=== PATIENT | male | born 1945 | race Hispanic/Latino ===

== ENCOUNTER → 2017-11-03 | Outpatient (CLI) | payer OTHER ==
[~2017-11-03] MED LIST: REGADENOSON 0.4 MG/5 ML PF SYG IVP SCH
== END | disposition home or self-care (01) ==
LOC: SHCH 09:38
PROVIDERS: ATTEND Internal Medicine Cardiovascular Disease
DX: I25.119 Atherosclerotic heart disease of native coronary artery with unspecified angina pectoris (principal); I10 Essential (primary) hypertension; E78.5 Hyperlipidemia, unspecified
CPT/HCPCS: 78452; 93017; 96374; A9500 ×2; J2785

== ENCOUNTER 2021-03-29 07:13 | Day surgery (SDC) | payer OTHER ==
[2021-03-26 12:06] LABS: BASOPHILS % (AUTO) 0.7 % (0.0-5.0); EOSINOPHILS % (AUTO) 4.9 % (0.0-8.0); HEMATOCRIT 42.1 % (42-54); LYMPHOCYTES % (AUTO) 20.3 % (21.0-51.0); MEAN CORPUSCULAR HEMOGLOBIN 30.1 pg (27.0-33.0); MEAN CORPUSCULAR HGB CONC 32.1 g/dL (32.0-36.0); MONOCYTES % (AUTO) 6.3 % (3.0-13.0); NEUTROPHILS % (AUTO) 67.6 % (40.0-77.0); PLATELET COUNT (AUTO) 184 K/uL (130-400); RED BLOOD CELL COUNT(AUTO) 4.48 MIL/uL (4.50-6.20); RED CELL DISTRIBUTION WIDTH 13.7 % (11.0-15.5); WHITE BLOOD COUNT (AUTO) 5.9 K/uL (4.8-10.8)
[2021-03-26 12:14] LABS: POTASSIUM 4.3 mmol/L (3.5-5.1)
[2021-03-26 12:20] LABS: INR 1.04 (0.85-1.15); PROTHROMBIN TIME 11.3 SEC (9.6-11.6)
[2021-03-26 12:21] LABS: PARTIAL THROMBOPLASTIN TIME 27.1 SEC (26.3-35.5)
[2021-03-28 17:48] VITALS: BP 159/83
[2021-03-29] VITALS (18 sets, daily range): BP systolic 134–159; BP diastolic 68–87
[~2021-03-29] VITALS: Ht 165.1 cm; Wt 66.7 kg
[~2021-03-29 07:13] MED LIST changes: +AEC81 PO; -REGADENOSON 0.4 MG/5 ML PF SYG IVP SCH
[2021-03-29] MEDS ORDERED: LACTATED RINGERS 1000ML 1,000 ML IV ONE (07:45)
[2021-03-29] MEDS: CEFTRIAXONE 1G VIAL ONE ×2 (07:50→09:55)
[2021-03-29] MEDS ORDERED: LIDOCAINE PF 100MG/5ML (2%) SYRINGE 5ML ONE (08:32)
[2021-03-29] MEDS ORDERED: SUCCINYLCHOLINE 200MG/10ML SYR ONE (08:32)
[2021-03-29] MEDS ORDERED: DEXAMETHASONE SOD PHOSPHATE 10MG/ML 1ML VIAL ONE (08:32)
[2021-03-29] MEDS ORDERED: MIDAZOLAM HCL 1 MG/ML 2ML VIAL ONE (08:32)
[2021-03-29] MEDS ORDERED: ROCURONIUM 10MG/1ML SYR 10 MG/ML ML ONE (08:33)
[2021-03-29] MEDS ORDERED: GLYCOPYRROLATE 1 MG/5 ML SYRINGE ONE (08:33)
[2021-03-29] MEDS ORDERED: FENTANYL CITRATE PF 50 MCG/1 ML 2ML VIAL ONE (08:33)
[2021-03-29] MEDS ORDERED: PROPOFOL 10 MG/ML 20ML VIAL IV ONE (08:33)
[2021-03-29] MEDS ORDERED: ONDANSETRON 4MG INJ ONE (08:33)
[2021-03-29] MEDS ORDERED: NEOSTIGMINE 5MG/5ML SYR IV ONE (08:33)
[2021-03-29] MEDS ORDERED: OPIUM/BELLADONNA ALKALOIDS 1 EACH SUPP.RECT RC ONE (10:16)
[2021-03-29] MEDS ORDERED: IPRATROPIUM/ALBUTEROL SULFATE 3 ML SOLUTION IH ONE (10:57)
[2021-03-29] MEDS ORDERED: FINA1TAB13 PO (11:19)
[2021-03-29] MEDS ORDERED: LORA10TA7 PO (11:19)
[2021-03-29] MEDS ORDERED: AEC81 PO (11:19)
[2021-03-29] MEDS ORDERED: AMLO2.5T4 PO (11:19)
[2021-03-29] MEDS ORDERED: LOSA25TA41 PO (11:19)
[2021-03-29] MEDS ORDERED: ATOR10 PO (11:19)
[2021-03-29] MEDS ORDERED: MONT4TAB17 PO (11:19)
[2021-03-29] MEDS ORDERED: TAMS-1 PO (11:19)
[2021-03-29] MEDS ORDERED: PHENAZOPYRIDINE HCL 200 MG TABLET ONE (11:45)
== END 2021-03-29 12:40 | disposition home or self-care (01) ==
LOC: DAH 07:13
PROVIDERS: ATTEND Urology
DX: N40.1 Benign prostatic hyperplasia with lower urinary tract symptoms (principal); Z20.822 Contact with and (suspected) exposure to COVID-19; R39.12 Poor urinary stream; R39.14 Feeling of incomplete bladder emptying; R35.1 Nocturia; N35.812 Other bulbous urethral stricture, male; I10 Essential (primary) hypertension; J44.9 Chronic obstructive pulmonary disease, unspecified; Z99.81 Dependence on supplemental oxygen; Z87.891 Personal history of nicotine dependence; Z79.01 Long term (current) use of anticoagulants; Z79.82 Long term (current) use of aspirin; Z79.899 Other long term (current) drug therapy
CPT/HCPCS: 36415; 52648; 71045; 80048; 85025; 85610; 85730; 87635; 93005; 94640; A4213; A4215; A4221; A4222; A4223; A4335; A4340; A4354; A4358 ×2; A4554; A4600; A4663; A5113; A6260; A7002; C9803; J0330; J0696; J1100; J2001; J2250; J2405; J2704; J2710; J3010; J3490; J7120 ×2

== ENCOUNTER → 2021-12-18 | Outpatient (CLI) | payer OTHER ==
[~2021-12-18] MED LIST changes: +AMLO2.5T4 PO; +ATOR10 PO; +FINA1TAB13 PO; +LORA10TA7 PO; +LOSA25TA41 PO; +MONT4TAB17 PO; +TAMS-1 PO
== END | disposition home or self-care (01) ==
LOC: SHCH 08:05
PROVIDERS: ATTEND Internal Medicine Cardiovascular Disease
DX: N28.1 Cyst of kidney, acquired (principal); I10 Essential (primary) hypertension
CPT/HCPCS: 93975

== ENCOUNTER → 2022-01-14 | Outpatient (CLI) | payer OTHER | END | disposition home or self-care (01) | LOC: SHCH 09:48 | PROVIDERS: ATTEND Internal Medicine Cardiovascular Disease | DX: I70.293 Other atherosclerosis of native arteries of extremities, bilateral legs (principal) | CPT/HCPCS: 93925 ==

== ENCOUNTER → 2023-05-13 | Outpatient (CLI) | payer OTHER ==
[~2023-05-13] MED LIST changes: -MONT4TAB17 PO; +MONT4TAB19 PO
== END | disposition home or self-care (01) ==
LOC: SHCH 07:35
PROVIDERS: ATTEND Internal Medicine Cardiovascular Disease
DX: I35.8 Other nonrheumatic aortic valve disorders (principal); I11.9 Hypertensive heart disease without heart failure; E78.5 Hyperlipidemia, unspecified
CPT/HCPCS: 93306

== ENCOUNTER → 2024-08-08 | Outpatient (CLI) | payer OTHER | END | disposition home or self-care (01) | LOC: SHCH 09:54 | PROVIDERS: ATTEND Internal Medicine Cardiovascular Disease | DX: I31.39 Other pericardial effusion (noninflammatory) (principal) | CPT/HCPCS: 93306 ==

== ENCOUNTER 2025-01-11 05:03 | Emergency (ER) | payer OTHER ==
[~2025-01-11] VITALS: Ht 165.1 cm; Wt 68.0 kg
[~2025-01-11 05:03] MED LIST changes: -TAMS-1 PO; +TAMS-55 PO
[2025-01-11] MEDS ORDERED: CACL 1GM SYG IVP ONE (05:04)
--- NOTE | 2025-01-11 05:05 | NUR ---
PATIENT ON CPAP UPON ARRIVAL VIA EMS , IN RESPIRATORY DISTRESS, PLACED ON BIPAP, ED MD AT BEDSIDE
[2025-01-11] MEDS: Solu-medROL 125MG VIAL ONE (05:08)
[2025-01-11] MEDS: Solu-medROL 125MG VIAL IVP ONE (05:08)
[2025-01-11] MEDS: MAGNESIUM 2GM PREMIX 50ML 50 ML IV ONE (05:09)
[2025-01-11] MEDS: MAGNESIUM 2GM PREMIX 50ML 50 ML IV SCH (05:09)
[2025-01-11] MEDS: EPINEPHrine PF 1MG (1:1,000) 1 MG/ML AMP ONE (05:09)
[2025-01-11] MEDS: EPINEPHrine PF 1MG (1:1,000) 1 MG/ML AMP IM ONE (05:10)
[2025-01-11 05:12] LABS: ABG HCO3 30.3 mmol/L (21.0-28.0); ABG OXYGEN SATURATION 99.1 % (94.0-98.0); PO2, ARTERIAL BG 226.5 mmHg (83.0-108.0); VENT MODE, BG BIPAP 14-6 (ROOM AIR)
[2025-01-11 05:14] VITALS: PULSE 91; RESP 31
[2025-01-11] MEDS: FENTanyl 1000MCG+NS 100ML 100 ML IV ONE (05:18)
[2025-01-11 05:20] VITALS: TEMP 97.4
--- NOTE | 2025-01-11 05:29 | NUR ---
INTUBATION NOTE 0519 ETOMIDATE 20MG IVP ORDERED BY ED 0520 SUCC 100MG IVP ORDERED BY ED 0523 PATIENT INTUBATED 25CM @LIP 7.5 ETT
[2025-01-11] MEDS ORDERED: SUCCINYLCHOLINE 200MG/10ML SYR IVP ONE (05:30)
[2025-01-11] MEDS: FENTanyl 1000MCG+NS 100ML 100 ML IV SCH (05:30)
[2025-01-11] MEDS: dexmedeTOMIDine 400MCG/NS100ML IV SCH (05:30)
[2025-01-11] MEDS: proPOFol 1000 MG/100 ML 100 ML IV ONE (05:34)
[2025-01-11 05:37] VITALS: PULSE 94; O2SAT 100
[2025-01-11 05:45] LABS: BASOPHILS # (AUTO) 0.11 K/uL (0.00-0.20); BASOPHILS % (AUTO) 0.7 % (0.0-5.0); EOSINOPHILS # (AUTO) 0.76 K/uL (0.00-0.70); EOSINOPHILS % (AUTO) 4.7 % (0.0-8.0); HEMATOCRIT 47.5 % (42-54); IMMATURE GRANULOCYTE ABSOLUTE 0.08 K/uL (0-1); LYMPHOCYTES % (AUTO) 12.2 % (21.0-51.0); MEAN CORPUSCULAR HEMOGLOBIN 30.1 pg (27.0-33.0); MEAN CORPUSCULAR HGB CONC 30.3 g/dL (32.0-36.0); MEAN CORPUSCULAR VOLUME 99.2 fL (79-99); MONOCYTES # (AUTO) 0.8 K/uL (0.1-1.0); MONOCYTES % (AUTO) 5.2 % (3.0-13.0); NEUTROPHILS # (AUTO) 12.5 K/uL (1.8-7.7); NEUTROPHILS % (AUTO) 76.7 % (40.0-77.0); PLATELET COUNT (AUTO) 265 K/uL (130-400); RED BLOOD CELL COUNT(AUTO) 4.79 MIL/uL (4.50-6.20); WHITE BLOOD COUNT (AUTO) 16.3 K/uL (4.8-10.8)
--- NOTE | 2025-01-11 05:46 | ERN ---
General Chief Complaint: Shortness of Breath Stated Complaint: SOB Time Seen by MD: 05:41 Source: EMS History of Present Illness Initial Comments Patient is a 79-year-old male with a known history of COPD brought in by EMS for respiratory distress. The patient's mental status was waxing and waning and it was impossible to get any kind of medical history from him. Listening to patient's chest showed 0 air movement into any of his airways. A stat ABG showed a pCO2 greater than 100. The patient was emergently intubated. Timing/Duration: unsure Allergies: Coded Allergies: No Known Drug Allergies (Unverified Allergy, Unknown, 11/02/17) Home Meds Reported Medications Montelukast Sodium (Montelukast Sodium) 4 Mg Tab.chew, PO AM, TAB.CHEW 03/29/21 Loratadine (Loratadine) 10 Mg Tablet, PO AD, TAB 03/29/21 Amlodipine Besylate (Amlodipine Besylate) 2.5 Mg Tablet, PO AM, TAB 03/29/21 Losartan Potassium (Losartan Potassium) 25 Mg Tablet, PO AM, TAB 03/29/21 Atorvastatin Calcium (LIPITOR) 20 Mg Tab, PO HS, TAB 03/29/21 Tamsulosin HCl (Flomax) 0.4 Mg Cap.er.24h, 0.4 MG PO BID, CAPSULE.DR 03/29/21 Finasteride (Finasteride) 1 Mg Tablet, PO BID, TAB 03/29/21 Aspirin (ASPIRIN 81 MG ECTAB) 81 Mg Ectab, 81 MG PO DAILY, TAB.EC 03/28/21 Past Medical History Past Medical History: CHF, COPD, High Cholesterol, Hypertension Past Surgical History: None ROS Dictation Unable to obtain review of systems. Per report respiratory distress was the patient's only symptom. Physical Exam General Appearance: (+) moderate distress Orientation: (+) alert Head/Face Trauma: No Eye: bilateral eye normal inspection, bilateral eye PERRL, bilateral eye EOMI Respiratory: (+) decreased breath sounds, (+) retractions Respiratory Comment There were no breath sounds. Heart: (+) regular, (+) no gallop Vascular: (+) no edema Vascular Comment Bilateral lower extremity peripheral pulses nonpalpable Gastrointestinal: (+) soft, (+) non-tender, (+) bowel sound present Extremities: (+) normal range of motion Neurologic/Psychiatric: (+) no motor defecits Results Laboratory and Microbiology Lab and Micro Result Laboratory Tests Test 01/11/25 05:08 01/11/25 05:16 01/11/25 05:31 01/11/25 06:03 Blood Gas Specimen Type Arterial Arterial Arterial Blood Partial Pressure O2 226.5 mmHg (83.0-108.0) H 333.4 mmHg (83.0-108.0) Arterial Blood HCO3 30.3 mmol/L (21.0-28.0) H 47.4 mmol/L (21.0-28.0) H Arterial Blood Oxygen Saturation 99.1 % (94.0-98.0) H 99.2 % (94.0-98.0) H Arterial Blood Base Excess -3.0 mmol/L (-2.0-3.0) L 18.7 mmol/L (-2.0-3.0) H Blood Gas Temperature 37.0 CELSIUS (35.5-37.0) 37.0 CELSIUS (35.5-37.0) Blood Gas Respiration Rate 14.0 min. Blood Gas Vent Mode BIPAP 14-6 (ROOM AIR) AMBU POST CODE (ROOM AIR) FiO2 90.0 % 100.0 % Blood Gas Specimen Comment CORTNEY RN, RB RR White Blood Count 16.3 K/uL (4.8-10.8) H Red Blood Count 4.79 MIL/uL (4.50-6.20) Hemoglobin 14.4 g/dL (14.0-18.0) Hematocrit 47.5 % (42-54) Mean Corpuscular Volume 99.2 fL (79-99) H Mean Corpuscular Hemoglobin 30.1 pg (27.0-33.0) Mean Corpuscular Hemoglobin Concent 30.3 g/dL (32.0-36.0) L Red Cell Distribution Width 13.0 % (11.0-15.5) Platelet Count 265 K/uL (130-400) Mean Platelet Volume 10.1 fL (7.5-10.5) Immature Granulocyte % (Auto) 0.5 % (0-1) Neutrophils (%) (Auto) 76.7 % (40.0-77.0) Lymphocytes (%) (Auto) 12.2 % (21.0-51.0) L Monocytes (%) (Auto) 5.2 % (3.0-13.0) Eosinophils (%) (Auto) 4.7 % (0.0-8.0) Basophils (%) (Auto) 0.7 % (0.0-5.0) Neutrophils # (Auto) 12.5 K/uL (1.8-7.7) H Lymphocytes # (Auto) 2.0 K/uL (1.0-4.8) Monocytes # (Auto) 0.8 K/uL (0.1-1.0) Eosinophils # (Auto) 0.76 K/uL (0.00-0.70) H Basophils # (Auto) 0.11 K/uL (0.00-0.20) Absolute Immature Granulocyte (auto 0.08 K/uL (0-1) Nucleated Red Blood Cells 0.0 % (0.0-0.19) Red Blood Cell Morphology ANISO 1+ Sodium Level 142 mmol/L (136-145) Potassium Level 4.6 mmol/L (3.5-5.1) Chloride Level 104 mmol/L (101-111) Carbon Dioxide Level 36 mmol/L (21-32) H Blood Urea Nitrogen 15 mg/dL (7-18) Creatinine 1.2 mg/dL (0.5-1.3) Glomerular Filtration Rate Calc 62 mL/min (>90) Random Glucose 204 mg/dL (70-105) H Lactic Acid Level 1.7 mmol/L (0.8-2.5) Total Calcium 8.5 mg/dL (8.5-10.1) Total Creatine Kinase 201 U/L (21-232) Troponin I High Sensitivity 25 ng/L (4-75) B-Type Natriuretic Peptide 51 pg/mL (0-100) Urine Color COLORLESS (YELLOW) Urine Appearance CLEAR (CLEAR) Urine pH 7.0 (5.0-8.0) Urine Specific [place] 1.010 (1.001-1.031) Urine Protein 100 mg/dL (NEGATIVE) H Urine Glucose (UA) 30 mg/dL (NEGATIVE) H Urine Ketones NEGATIVE mg/dL (NEGATIVE) Urine Occult Blood NEGATIVE (NEGATIVE) Urine Nitrate NEGATIVE (NEGATIVE) Urine Bilirubin NEGATIVE mg/dL (NEGATIVE) Urine Urobilinogen 0.2 mg/dL (0.2-1.0) Urine Leukocyte Esterase NEGATIVE Emre/uL Urine RBC 2-5 /HPF (0-1) H Urine WBC 2-5 /HPF (0-1) H Urine Squamous Epithelial Cells RARE /HPF (0-2) Urine Bacteria RARE /HPF (None Seen) Urine Hyaline Casts 2-5 /LPF (0-1 /LPF) H Influenza Type A Antigen Negative For Type A Influenza Type B Antigen Negative For Type B SARS-CoV-2, RNA, NAAT NEGATIVE SARS CoV-2 Arterial Blood pH 7.401 (7.350-7.450) Arterial Blood Partial Pressure CO2 78 mmHg (35-48) *H Hemoglobin (Blood Gas) 12.5 g/dL (13.5-17.5) L Sodium (Blood Gas) 155 MMOL/L (136-145) H Bedside Potassium (Blood Gas) 5.3 MMOL/L (3.4-4.5) H Bedside Chloride (Blood Gas) 100 MMOL/L (98-107) Bedside Glucose (Blood Gas) 248 MG/DL (65-95) H Bedside Ionized Calcium (Blood Gas) 0.96 MMOL/L (1.15-1.33) L Bedside Lactic Acid (Blood Gas) 5.16 MMOL/L (0.36-0.75) *H Blood Gas Flow-by 15.00 L/min (0.00-15.00) MDM Patient had complete locked down of his airways. He was emergently intubated. Currently sedated on fentanyl and propofol and Precedex. I will start his workup with inhalers IV steroids magnesium. Chest x-ray. I will also include a cardiac workup as he has a history of CHF. Patient's blood pressure has dropped to systolic 80s after the sedation needed for his intubation. Shortly after intubating the patient, We noticed that the patient had gone into had gone into a wide complex tachycardia and had lost all his pulses. A code was initiated and standard ACLS protocol started. Patient was given four amps of bicarb plus lidocaine and several rounds an of epinephrine with chest compressions. We did shock the patient with 150 joules and and we obtained ROSC. Working with the respiratory therapist we had an extremely difficult time getting adequate tidal volumes on the patient. We paralyzed him and still even with a peak inspiratory pressure of 50 the patient's tidal volumes were only 150 cc. We tried a pressure mode and still could not get tidal volumes above 100 without having high peak inspiratory pressures. Listening to the patient's lungs he still had very minimal air movement. We are starting a Levophed drip for low blood pressures as well. I noted that he had no pulse and was in PEA. A code was called chest compressions initiated ACLS protocol started. During this code we noticed the patient had no air movement into his right lung and increased abdominal distention. We started chest compressions and epinephrine. Two more amps of bicarb were given. An angio catheter was inserted into the patient's right chest to relieve whatever tension pneumothorax was present. We still did not achieve ROSC. We performed two more rounds of CPR with epinephrine and no pulse was achieved. We stopped resuscitative efforts. I talked to the patient's daughter and explained what it happened. Total critical care time 60 minutes. ED Course Orders Procedure Category Date Status Time Albuterol 0.083% PHA 01/11/25 Complete 2.5mg/3ml (Proventil 05:30 Arterial Blood Gas + RT 01/11/25 Transmitted 05:06 Iv Insertion CPOE 01/11/25 Transmitted 05:06 Pulse Ox(Continuous) RT 01/11/25 Transmitted 05:06 Vital Signs Per CPOE 01/11/25 Transmitted Routine 05:06 12 Lead Ekg Tracing- EKG 01/11/25 Logged Technical 05:06 Cbc With Differential LAB 01/11/25 Complete 05:06 Blood Cult LINDY 01/11/25 Logged 05:06 Creatine Kinase, Total LAB 01/11/25 Complete 05:06 Troponin I High LAB 01/11/25 Complete Sensitivity 05:06 Lactic Acid LAB 01/11/25 Complete 05:06 Basic Metabolic Panel LAB 01/11/25 Complete 05:06 Methylprednisolone PHA 01/11/25 Complete Succ 125mg (Solu-Medr 05:30 Magnesium 2gm Premix PHA 01/11/25 In Process 50ml (Magnesium 2gm 05:30 Epinephrine Pf 1mg PHA 01/11/25 Complete (1:1,000) (Adrenaline 05:30 Methylprednisolone PHA 01/11/25 Complete Succ 125mg (Solu-Medr 05:08 Epinephrine Pf 1mg PHA 01/11/25 Complete (1:1,000) (Adrenaline 05:09 Magnesium 2gm Premix PHA 01/11/25 Complete 50ml (Magnesium 2gm 05:09 Bipap Settings RT 01/11/25 Transmitted 05:09 Arterial Blood Gas LAB 01/11/25 In Process 05:08 Etomidate 20mg Vial PHA 01/11/25 Complete (Amidate 20mg Vial) 05:30 Succinylcholine PHA 01/11/25 Complete (Anectine) 05:30 Dexmedetomidine PHA 01/11/25 In Process 400mcg/Ur859yh 05:30 Fentanyl 1000mcg+Ns PHA 01/11/25 In Process 100ml (Fentanyl 1000 05:30 Chest 1vw RAD 01/11/25 Taken 05:16 B-Type Natriuretic LAB 01/11/25 Complete Peptide 05:16 Fentanyl 1000mcg+Ns PHA 01/11/25 Complete 100ml (Fentanyl 1000 05:18 Succinylcholine PHA 01/11/25 Complete Chloride 05:30 Propofol 1000 Mg/100 PHA 01/11/25 Complete Ml (Diprivan 1000mg 05:34 Norepinephrin 4mg/Ns PHA 01/11/25 Complete 250ml (Levophed 4mg 05:46 Arterial Blood Gas LAB 01/11/25 Complete Arterial + 06:03 Covid Rna Naat LAB 01/11/25 Complete 06:10 Influenza Type A & B, LAB 01/11/25 Complete Rapid 06:10 Urinalysis Profile LAB 01/11/25 Complete 06:10 Vasopressin 20 PHA 01/11/25 Complete Units/Ml 1ml Vi 06:12 Sodium Bicarb 50meq PHA 01/11/25 Complete 50ml Vial (Sodium Bi 06:15 Current Medications Medications (Trade) Dose Ordered Sig/Yeimy Route PRN Reason Start Time Stop Time Status Last Admin Dose Admin Albuterol Sulfate (Proventil 0.083% 2.5mg/3ml) 10 mg ONCE ONCE IH 01/11/25 05:30 01/11/25 05:31 DC 01/11/25 06:29 Dexmedetomidine/ Sodium Chloride (PRECEdex 400MCG/ 100ML-NS) 400 mcg PROTOCOL IV 01/11/25 05:30 02/10/25 05:29 Epinephrine HCl (ADRENaline PF 1MG AMP) 0.5 mg ONCE ONCE IM 01/11/25 05:30 01/11/25 05:31 DC Epinephrine HCl (ADRENaline PF 1MG AMP) 1 mg STK-MED ONCE .ROUTE 01/11/25 05:09 01/11/25 05:09 DC Etomidate (Amidate 20mg Vial) 20 mg ONCE ONCE IVP 01/11/25 05:30 01/11/25 05:31 DC Fentanyl Citrate 100 ml @ 2.5 mls/hr PROTOCOL IV 01/11/25 05:30 01/18/25 05:29 Fentanyl Citrate 100 ml @ As Directed STK-MED ONCE IV 01/11/25 05:18 01/11/25 05:19 DC Magnesium Sulfate 50 ml @ 0 mls/hr PROTOCOL IV 01/11/25 05:30 02/10/25 05:29 Magnesium Sulfate 50 ml @ As Directed STK-MED ONCE IV 01/11/25 05:09 01/11/25 05:09 DC Methylprednisolone Sodium Succinate (Solu-medROL 125MG) 125 mg ONCE ONCE IVP 01/11/25 05:30 01/11/25 05:31 DC Methylprednisolone Sodium Succinate (Solu-medROL 125MG) 125 mg STK-MED ONCE .ROUTE 01/11/25 05:08 01/11/25 05:08 DC Norepinephrine 250 ml @ As Directed STK-MED ONCE IV 01/11/25 05:46 01/11/25 05:46 DC Propofol 100 ml @ As Directed STK-MED ONCE IV 01/11/25 05:34 01/11/25 05:35 DC Sodium Bicarbonate 100 ml @ As Directed STK-MED ONCE .ROUTE 01/11/25 06:15 01/11/25 06:15 DC Succinylcholine Chloride (Anectine) 100 mg ONCE ONCE IVP 01/11/25 05:30 01/11/25 05:19 DC Succinylcholine Chloride (Quelicin/ Anectine) 100 mg ONCE ONCE IVP 01/11/25 05:30 01/11/25 05:31 DC Vasopressin (PITRessin 20 U/ mL 1ml vial) 20 units STK-MED ONCE .ROUTE 01/11/25 06:12 01/11/25 06:13 DC Vital Signs Date Time Temp Pulse Resp B/P (MAP) Pulse Ox O2 Delivery O2 Flow Rate FiO2 01/11/25 06:24 90 31 90 01/11/25 05:37 94 60 01/11/25 05:32 192/86 100 Ventilator+ 60 01/11/25 05:23 82 20 171/98 100 Bi-PAP+ 100 01/11/25 05:14 91 31 5/7/25 05:10 110 26 190/98 100 CPAP 10.0 Intubation Intubation : Intubation Method: orotracheal Tube Size (cm): 7.5 Medications: Succinylcholine Breath Sounds after Intubation: equal Intubation Complications: no complications Post Intubation Xray: Yes DX & DISP Disposition: Departure Impression: Primary Impression: COPD exacerbation Additional Impressions: PEA (Pulseless electrical activity), Metabolic acidosis, Respiratory acidosis Critical Time: 60 minutes Condition: Stable Referrals: NOAM CHADWICK M.D. (PCP) EMILIANA AMES MD January 11, 2025 05:46
[2025-01-11 05:48] VITALS: BP 83/48; O2SAT 100
--- NOTE | 2025-01-11 05:53 | NUR ---
PATIENT BECAME PULSELESS, CODE BLUE ACTIVATED AT THIS TIME
--- NOTE | 2025-01-11 06:02 | NUR ---
REFER TO CODE BLUE SHEET
[2025-01-11 06:05] LABS: ABG BASE EXCESS 18.7 mmol/L (-2.0-3.0); ABG HCO3 47.4 mmol/L (21.0-28.0); ABG OXYGEN SATURATION 99.2 % (94.0-98.0); ABG PCO2 78 mmHg (35-48); ABG PH 7.401 (7.350-7.450); CARBON MONOXIDE 0.3 % (0.5-1.5); DEVICE COMMENT RR; HHb 0.8; PO2, ARTERIAL BG 333.4 mmHg (83.0-108.0); VENT MODE, BG AMBU POST CODE (ROOM AIR)
[2025-01-11 06:05] LABS: CREATININE 1.2 mg/dL (0.5-1.3); POTASSIUM 4.6 mmol/L (3.5-5.1)
--- NOTE | 2025-01-11 06:05 | NUR ---
Keira dennison in [facility] - 01/11/25 at 0737 by GRACIA PATIENT EVENT: PATIENT BECAME PULSELESS, CODE BLUE ACTIVATED @7785, REFER TO CODE BLUE SHEET.
[2025-01-11 06:07] LABS: ABG PH 7.083 (7.350-7.450)
[2025-01-11 06:08] LABS: ABG PCO2 104 mmHg (35-48)
--- NOTE | 2025-01-11 06:15 | NUR ---
CODE BLUE ACTIVATED AT THIS TIME
[2025-01-11 06:24] VITALS: PULSE 90; RESP 31; O2SAT 99
[2025-01-11] MEDS: ALBUTEROL 0.083% 2.5 MG/3 ML INH IH ONE (06:29)
[2025-01-11 06:37] LABS: SARS-CoV-2, RNA, NAAT NEGATIVE SARS CoV-2 (NEGATIVE)
--- NOTE | 2025-01-11 06:40 | NUR ---
REFER TO CODE BLUE SHEET
[2025-01-11 06:42] LABS: INFLUENZA TYPE A Negative For Type A (NEGATIVE); INFLUENZA TYPE B Negative For Type B (NEGATIVE)
[2025-01-11 06:47] LABS: APPEARANCE,URINE CLEAR (CLEAR); BILIRUBIN,URINE NEGATIVE (NEGATIVE); COLOR,URINE COLORLESS (YELLOW); GLUCOSE, URINE (UA) 30 mg/dL (NEGATIVE); KETONES,URINE NEGATIVE (NEGATIVE); LEUKOCYTE ESTERASE ,URINE NEGATIVE Leu/uL (NEGATIVE); NITRATE,URINE NEGATIVE (NEGATIVE); OCCULT BLOOD,URINE NEGATIVE (NEGATIVE); PROTEIN,URINE 100 mg/dL (NEGATIVE); UROBILINOGEN,URINE 0.2 mg/dL (0.2-1.0)
[2025-01-11 06:49] LABS: ADD UA MICROSCOPIC YES
[2025-01-11 06:50] LABS: BACTERIA,URINE RARE /HPF (None Seen); MUCUS,URINE RARE LPF (None Seen); SQUAMOUS EPITHELIAL CELL,UR RARE /HPF (0-2)
[2025-01-11] MEDS: ETOMIDATE 20MG VIAL IVP ONE (07:20)
[2025-01-11] MEDS: SUCCINYLCHOLINE CHLORIDE 20 MG/ML 10 ML VIAL IVP ONE (07:20)
[2025-01-11] MEDS: SODIUM BICARB 50MEQ 50ML VIAL 100 ML ONE (07:31)
[2025-01-11] MEDS: VASOpressin 20 UNITS/ML 1ML VIAL ONE (07:31)
[2025-01-11] MEDS: NOREPINEPHRIN 4MG/NS 250ML 250 ML IV ONE (07:41)
--- NOTE | 2025-01-11 09:11 | HMCIMG ---
Exam Type: CHEST 1VW Clinical Information: SOB Comparison: None Findings: Endotracheal tube is noted with tip approximately 5.7 cm from ruby and no interval changes are seen otherwise. IMPRESSION: Endotracheal tube tip as noted.
== END 2025-01-11 06:44 ==
LOC: EDH 05:03
DX: J44.1 Chronic obstructive pulmonary disease with (acute) exacerbation (principal); M31.4 Aortic arch syndrome [Takayasu]; E87.4 Mixed disorder of acid-base balance; E78.00 Pure hypercholesterolemia, unspecified; I11.0 Hypertensive heart disease with heart failure; I50.9 Heart failure, unspecified; Z79.82 Long term (current) use of aspirin; Z20.822 Contact with and (suspected) exposure to COVID-19
CPT/HCPCS: 99291; 92950 ×2; 31500; 96365; 96366; 71045; 87635; 96375; 82947; 82435; 82550; 84484; 84132; 84295; 80048; 82803 ×2; 83880; 85025; 85018; 87804 ×2; 83605 ×2; 81001; 36415; 96372; 96368; 36600 ×2; 94640; J2919; J3475 ×2; J3490 ×5; J3010; J0171 ×2; J2704; 94002; J0330